=== PATIENT | male | born 1990 | race Caucasian/White ===

== ENCOUNTER 2022-02-13 01:34 | Emergency (ER) | payer SELFPAY ==
[~2022-02-13] VITALS: Ht 175.3 cm; Wt 72.6 kg
--- NOTE | 2022-02-13 01:34 | NUR ---
PT CARY MATT, PREBOOK. TAKEN TO CHAIR
[2022-02-13 01:36] VITALS: BP 126/76
--- NOTE | 2022-02-13 01:36 | NUR ---
Dr. Duarte examining patient.
--- NOTE | 2022-02-13 01:44 | NUR ---
PATIENT BIB [employer]. PATIENT EXAMINED BY DR. RUEDA. PATIENT MEDICALLY CLEARED AND RELEASED IN CUSTODY IN STABLE CONDITION. ORIGINAL PRE-BOOK FORM GIVEN TO OFFICER DERIK, #[id number].
== END 2022-02-13 01:44 ==
LOC: MED 01:34
DX: Z02.89 Encounter for other administrative examinations (principal); V89.2XXA Person injured in unspecified motor-vehicle accident, traffic, initial encounter; Y93.89 Activity, other specified; Y92.410 Unspecified street and highway as the place of occurrence of the external cause; Y99.8 Other external cause status
CPT/HCPCS: 99283